=== PATIENT | female | born 1990 | race Two or more races ===

== ENCOUNTER 2017-02-05 12:35 | Emergency (ER) | payer SELFPAY ==
[~2017-02-05] VITALS: Ht 167.6 cm; Wt 86.2 kg
[2017-02-05 12:41] VITALS: BP 140/80
== END 2017-02-05 14:22 | disposition home or self-care (01) ==
LOC: EDBD 12:35 → ER 12:42
DX: S46.912A Strain of unspecified muscle, fascia and tendon at shoulder and upper arm level, left arm, initial encounter (principal); Z90.49 Acquired absence of other specified parts of digestive tract; V49.49XA Driver injured in collision with other motor vehicles in traffic accident, initial encounter; Y93.89 Activity, other specified; Y99.8 Other external cause status; Y92.89 Other specified places as the place of occurrence of the external cause
CPT/HCPCS: 73030

== ENCOUNTER 2023-08-02 17:43 | Emergency (ER) | payer MEDICAID, OTHER ==
[~2023-08-02] VITALS: Ht 162.6 cm; Wt 114.7 kg
[2023-08-02] MEDS ORDERED: IBUP-1456 PO (21:40)
[2023-08-02 22:10] VITALS: BP 127/84; PULSE 88; RESP 19; TEMP 98.1
[2023-08-02 23:20] VITALS: O2SAT 98
== END 2023-08-03 00:59 | disposition home or self-care (01) ==
LOC: ER 17:43
DX: S83.91XA Sprain of unspecified site of right knee, initial encounter (principal); Z90.49 Acquired absence of other specified parts of digestive tract; W01.0XXA Fall on same level from slipping, tripping and stumbling without subsequent striking against object, initial encounter; Y93.89 Activity, other specified; Y92.89 Other specified places as the place of occurrence of the external cause; Y99.0 Civilian activity done for income or pay
CPT/HCPCS: 29505; 73562; 81025